=== PATIENT | female | born 1950 | race Caucasian/White ===

== ENCOUNTER 2019-10-05 18:43 | Emergency (ER) | payer MEDICARE, SELFPAY ==
--- NOTE | ~2019-10-05 | CT_ITS ---
EXAMINATION: CT abdomen pelvis w con DATE: 10/05/2019 19:41 INDICATION: Abdomen pain TECHNIQUE: Computed tomography (CT) of the abdomen and pelvis was performed with 100 cc Omnipaque 350 intravenous contrast. The dose-length product was 748.77 mGy-cm. Automated exposure control and iter ative reconstruction technique were employed. COMPARISON: None. FINDINGS: Bibasilar dependent atelectasis. Cardiomegaly. Small pericardial effusion. There is a gallstone at the gallbladder neck. Mild gallbladder wall thickening. No significant biliar y dilatation. There are small subcentimeter hypodensities of the liver, most likely benign. The spleen, pancreas, a drenal glands and kidneys are unremarkable. Small hiatal hernia. No significant vascular abnormality. No lymphadenopathy. There is thickening of the pylorus of the stomach, suspicious for gastritis. No bowel obstruction. No free air. Moderate lumbar spondylosis. IMPRESSION: 1. Abnormal thickening of the distal aspect of the stomach, suspicious for gastritis. 2: Gallstone at the gallbladder neck. Mild gallbladder wall thickening. Consider cholecystitis in the appropriate clinical setting. 3: Cardiomegaly with small pericardial effusion. Reviewed, dictated and finalized at location A. [facility] IMPRESSION: 1. Abnormal thickening of the distal aspect of the stomach, suspicious for osiel ritis. 2: Gallstone at the gallbladder neck. Mild gallbladder wall thickening. Conside r cholecystitis in the appropriate clinical setting. 3: Cardiomegaly with small pericardial effusion.
--- NOTE | 2019-10-05 18:54 | ED.ABDPAIN ---
HPI - Abdominal Pain General Chief Complaint: Abdominal Pain Stated Complaint: r flank pain Time Seen by Provider: 10/05/19 18:49 Source: patient and RN notes reviewed Mode of arrival: ambulatory Limitations: no limitations History of Present Illness HPI narrative: Pt is a 69 y/o female who presents to the ED with c/o a burning RLQ ABD pain that radiates to her right flank which began 2 days ago. Pt states the pain is radiating into her right groin area. She states the pain is worsened with movement, but her pain is alleviated when she does not move. She denies a fever, dysuria, or N/V/D. She reports taking Ibuprofen and Aleve without alleviation of her pain. MD elicited complaint: abdominal pain (RLQ) Pertinent past history: none Onset (ago): day(s) (2 days ago) Pain Consistency: constant Location: RLQ Quality: burning Radiation: R flank Migration to: no migration Exacerbating factors: movement Relieving factors: rest (staying still with minimal movement) Associated symptoms: other (right-sided groin pain) Related Data Home Medications Medication Instructions Recorded Confirmed hydrochlorothiazide 10/05/19 levothyroxine 10/05/19 losartan 10/05/19 metformin mg 10/05/19 metoprolol succinate PO 10/05/19 omeprazole 10/05/19 paroxetine HCl mg PO 10/05/19 paroxetine HCl mg PO 10/05/19 Allergies Allergy/AdvReac Type Severity Reaction Status Date / Time pravastatin Allergy Mild Unknown Verified 10/05/19 20:45 blue dye Allergy Hives Verified 10/05/19 20:45 peanut Allergy Hives Verified 10/05/19 20:45 red (food color) Allergy Hives Verified 10/05/19 20:45 pneumonia shot Allergy Intermediate Unknown Uncoded 10/05/19 18:50 Review of Systems Review of Systems: All systems reviewed & are unremarkable except as noted in HPI and below Constitutional: Constitutional: Denies fever(s) Gastrointestinal: Gastrointestinal: Reports abdominal pain (RLQ ABD pain which is radiating to her right flank), Denies diarrhea, Denies nausea and Denies vomiting Genitourinary: Genitourinary: Denies dysuria Musculoskeletal: Musculoskeletal: Reports other (right-sided groin pain) [facility] Past Medical History Medical History (Updated 10/05/19 @ 21:29 by Andrea Ortiz, ) Hypercholesterolemia Hypertension Hypothyroidism Surgical History Surgical History (Updated 10/05/19 @ 18:59 by Wendi Quispe) History of tubal ligation Family History Family History (Updated 05/04/14 @ 07:13 by DOCTOR UNKNOWN) Mother Hypertension Cerebrovascular accident Father Family history of pancreatic cancer Family history of heart disease in male family member before age 55 Sibling Family history of malignant neoplasm of ovary Other Family history of schizophrenia Social History Social History Smoking status: Never smoker Alcohol intake: never Gender identity (if verbalized by the patient): Female Exam Narrative: Exam Narrative: APPEARANCE: No acute distress, nontoxic, resting in bed HEENT: Normocephalic, atraumatic, OMM RESPIRATORY: No respiratory distress, clear to auscultation bilaterally with no rhonchi wheezing or rales CARDIOVASCULAR: RRR s murmur ABDOMINAL: Soft, nondistended, tender palpation right upper quadrant, no tenderness in right lower quadrant, left lower quadrant left upper quadrant, no rebound or guarding MUSCULOSKELETAl: Moves all extremities. No clubbing, cyanosis or edema. NEURO: Awake and alert. Following commands, speech normal, no focal deficits SKIN:: Warm, dry. Normal Color PSYCHIATRIC: Normal affect/mood Course Course Emergency Course: Patient states that they are feeling much better at this time. States abdominal pain has resolved. Repeat abdominal exam shows the patient's abdomen to be soft and nontender. Discussed with patient results of workup and diagnosis. Discussed need for follow-up with primary care physician, reasons to return to the emergency department in proper use of me
[2019-10-05 18:58] VITALS: BP 176/81; PULSE 80; RESP 18; TEMP 36.8; O2SAT 99
[2019-10-05 19:13] LABS: Basophils Absolute Auto 0.1 K/mm3 (0.0-0.1); Basophils Percent Auto 1.2 % (0.2-1.2); Eosinophils Absolute Auto 0.1 K/mm3 (0-0.3); Eosinophils Percent Auto 2.3 % (0-4.4); Hematocrit 41.9 % (37.0-47.0); Hemoglobin 13.8 g/dL (12.0-15.0); Immature Granulocyte Absolute 0.02 K/mm3 (0.00-0.031); Immature Granulocyte Percent A 0.4 % (0-0.5); Lymphocytes Absolute Auto 1.69 K/mm3 (0.9-3.2); Lymphocytes Percent Auto 30.1 % (18.3-44.2); Mean Corpuscular HGB Conc 32.9 g/dl (32-36); Mean Corpuscular Hemoglobin 29.2 pg (26-34); Mean Corpuscular Volume 88.6 fl (80-100); Mean Platelet Volume 9.7 fl (7.4-10.4); Monocytes Absolute Auto 0.5 K/mm3 (0.1-0.6); Monocytes Percent Auto 9.1 % (2.6-8.5); Neutrophils Absolute Auto 3.2 K/mm3 (1.3-6.7); Neutrophils Percent Auto 56.9 % (45.5-73.1); Platelet Count Result 237 k/mm3 (150-375); Red Blood Count 4.73 M/mm3 (4.2-5.4); Red Cell Distribution Width 12.8 % (11.5-14.5); White Blood Count 5.6 K/mm3 (4.5-10.0)
[2019-10-05 19:18] LABS: Add Urine Microscopic? YES; Appearance Urine Cloudy (Clear); Bacteria Urine 4+ /hpf; Bilirubin Urine 1+ (Negative); Blood Urine Negative (Negative); Color Urine Amber (Yellow); Glucose Urine UA Negative (Negative); Ketones Urine Negative (Negative); Leukocyte Esterase Ur 3+ LEU/UL (Negative); Mucus Urine Heavy /lpf; Nitrate Urine Negative (Negative); Protein Urine 2+ mg/dL (Negative); Specific Grav Ur 1.025 (1.001-1.035); Squamous Epithelial Cell Urine Many /hpf (Few); WBC Urine 51-75 /hpf
[2019-10-05 19:25] LABS: Alanine Aminotransferase 20 U/L (4-35); Albumin Level 4.7 g/dL (3.5-5.1); Alkaline Phosphatase 72 U/L (38-126); Aspartate Amino Transferase 25 U/L (14-36); Bilirubin,Total 0.6 mg/dL (0.2-1.3); Blood Urea Nitrogen 24 mg/dL (7-17); Calcium 9.3 mg/dL (8.4-10.2); Carbon Dioxide 26 mmol/L (22-30); Chloride 97 mmol/L (98-107); Estimated CRCL calculation 28 ml/min; Estimated Glomerular Filt Rate 32; Glucose 86 mg/dL (65-105); Lipase 221 U/L (23-300); Potassium 3.9 mmol/L (3.4-5.0); Sodium 136 mmol/L (137-145)
[2019-10-05 19:35] VITALS: TEMP 36.8
[2019-10-05] MEDS: SODIUM CHLORIDE 0.9% IV 1,000 ML 999 ML IV CONT (19:53)
[2019-10-05] MEDS: PANTOPRAZOLE SODIUM IV 40 MG VIAL IV PUSH (20:45)
[2019-10-05 20:48] VITALS: BP 161/61; PULSE 76; RESP 15; O2SAT 98
[2019-10-05 22:28] VITALS: BP 150/63; PULSE 74; RESP 18; TEMP 36.8; O2SAT 96
== END 2019-10-05 22:30 | disposition home or self-care (01) ==
PROVIDERS: Emergency Provider Emergency Medicine; PCP Family Medicine
DX: N39.0 Urinary tract infection, site not specified (principal); K29.70 Gastritis, unspecified, without bleeding; K80.20 Calculus of gallbladder without cholecystitis without obstruction; N28.9 Disorder of kidney and ureter, unspecified; I10 Essential (primary) hypertension; E03.9 Hypothyroidism, unspecified; E78.00 Pure hypercholesterolemia, unspecified; I51.7 Cardiomegaly
CPT/HCPCS: 36415; 74177; 80053; 81001; 83690; 85025; 87086; 96361; 96365; 96375; 99284; C9113; J0131; J0696; J7030; Q9967